=== PATIENT | female | born 1960 | race African-American/Black ===

== ENCOUNTER 2018-06-13 17:55 | Emergency (ER) | payer SELFPAY ==
--- NOTE | 2018-06-13 19:33 | ER Document Report ---
ED Medical Screen (RME) - General Chief Complaint: High Blood Sugar Stated Complaint: BLOOD SUGAR ISSUES Time Seen by Provider: 06/13/18 19:28 Mode of Arrival: Ambulatory Information source: Patient Notes: Patient states she received a call from her doctor that her blood sugar was elevated and that she should come to the hospital. Patient does admit to eating cookies despite a history of diabetes. Patient denies any recent illness, vomiting or abdominal tenderness. I have greeted and performed a rapid initial assessment of this patient. A comprehensive ED assessment and evaluation of the patient, analysis of test results and completion of the medical decision making process will be conducted by additional ED providers. TRAVEL OUTSIDE OF THE [place] IN LAST 30 DAYS: No Physical Exam - Vital signs Vitals: Temp Pulse Resp BP Pulse Ox 98.9 F 65 16 172/62 H 99 06/13/18 18:08 06/13/18 18:08 06/13/18 18:08 06/13/18 18:08 06/13/18 18:08 - General General appearance: Appears well, Alert In distress: None - Abdominal Inspection: Normal Tenderness: Nontender Course - Vital Signs Vital signs: Temp Pulse Resp BP Pulse Ox 98.9 F 65 16 172/62 H 99 06/13/18 18:08 06/13/18 18:08 06/13/18 18:08 06/13/18 18:08 06/13/18 18:08
[2018-06-13 20:55] LABS: ABSOLUTE EOSINOPHILS # (AUTO) 0.1 10^3/uL (0.0-0.6); ABSOLUTE LYMPHOCYTES (AUTO) 2.2 10^3/uL (0.5-4.7); ABSOLUTE MONOCYTES (AUTO) 0.5 10^3/uL (0.1-1.4); ABSOLUTE NEUT (AUTO) 2.8 10^3/uL (1.7-8.2); BASOPHILS % (AUTO) 0.5 % (0-2); HEMATOCRIT 39.1 % (36.0-47.0); HEMOGLOBIN 12.8 g/dL (12.0-15.5); MEAN CORPUSCULAR HEMOGLOBIN 27.8 pg (27.0-33.4); MEAN CORPUSCULAR HGB CONC 32.9 g/dL (32.0-36.0); MEAN CORPUSCULAR VOLUME 85 fl (80-97); MONOCYTES % (AUTO) 8.5 % (3-13); PLATELET COUNT 190 10^3/uL (150-450); RED BLOOD COUNT 4.62 10^6/uL (3.72-5.28); RED CELL DISTRIBUTION WIDTH 12.9 % (11.5-14.0); TOTAL CELLS COUNTED % (AUTO) 100 %; WHITE BLOOD COUNT 5.6 10^3/uL (4.0-10.5)
[2018-06-13 20:59] LABS: VENOUS BLOOD BASE EXCESS 2.2 mmol/L; VENOUS BLOOD PCO2 54.7 mmHg (35-63); VENOUS BLOOD PH 7.34 (7.30-7.42)
[2018-06-13 21:17] LABS: APPEARANCE,URINE SLIGHTLY-CLOUDY; BILIRUBIN,URINE NEGATIVE (NEGATIVE); COLOR,URINE YELLOW; GLUCOSE, URINE 50 mg/dL (NEGATIVE); KETONES,URINE TRACE mg/dL (NEGATIVE); LEUKOCYTE ESTERASE,URINE NEGATIVE (NEGATIVE); NITRITE,URINE NEGATIVE (NEGATIVE); PROTEIN,URINE NEGATIVE (NEGATIVE)
[2018-06-13 21:19] LABS: ALANINE AMINOTRANSFERASE 41 U/L (9-52); ALBUMIN 4.1 g/dL (3.5-5.0); ALKALINE PHOSPHATASE 64 U/L (38-126); ANION GAP 10 (5-19); ASPARTATE AMINO TRANSFERASE 28 U/L (14-36); BILIRUBIN,DIRECT 0.3 mg/dL (0.0-0.4); BILIRUBIN,TOTAL 0.4 mg/dL (0.2-1.3); BLOOD UREA NITROGEN 22 mg/dL (7-20); CALCIUM 9.8 mg/dL (8.4-10.2); CARBON DIOXIDE 28 mmol/L (22-30); CHLORIDE 101 mmol/L (98-107); GLUCOSE 241 mg/dL (75-110); POTASSIUM 4.4 mmol/L (3.6-5.0); SODIUM 139.2 mmol/L (137-145); TOTAL PROTEIN 7.1 g/dL (6.3-8.2)
[2018-06-13 21:57] VITALS: BP 179/80
--- NOTE | 2018-06-19 08:48 | ER Document Report ---
Entered by ROXANA WILSON SCRIBE 06/13/184 Acting as scribe for:JEFF JOSHI MD ED Blood Sugar Problem - General Chief Complaint: High Blood Sugar Stated Complaint: BLOOD SUGAR ISSUES Time Seen by Provider: 06/13/18 19:28 Mode of Arrival: Ambulatory Information source: Patient Notes: Patient is a 58 year old female who presents to the emergency department today with complaints of elevated blood sugars. Patient states that she takes metformin daily. Patient states that she is supposed to be taking 1000 mg twice daily however she only is able to take x1 1000mg pill as "taking x2 a day makes her sick to her stomach". Patient describes the sickness as abdominal pain. Patient states she has been taking the 1000 mg once a day for approximately 90 days. Patient admits that she does not check her sugars often. TRAVEL OUTSIDE OF THE [place] IN LAST 30 DAYS: No - Related Data Allergies/Adverse Reactions: No Known Allergies Allergy (Verified 06/13/18 19:34) Past Medical History - General Information source: Patient - Social History Smoking Status: Never Smoker Frequency of alcohol use: None Drug Abuse: None Family History: Reviewed & Not Pertinent Patient has suicidal ideation: No Patient has homicidal ideation: No - Past Medical History Cardiac Medical History: Reports: Hx Hypertension Endocrine Medical History: Reports: Hx Diabetes Mellitus Type 2 Past Surgical History: Reports: Hx Orthopedic Surgery - R knee Review of Systems - Review of Systems Constitutional: See HPI, Other - Elevated BGLs EENT: No symptoms reported Cardiovascular: No symptoms reported Respiratory: No symptoms reported Gastrointestinal: No symptoms reported Genitourinary: No symptoms reported Female Genitourinary: No symptoms reported Musculoskeletal: No symptoms reported Skin: No symptoms reported Hematologic/Lymphatic: No symptoms reported Neurological/Psychological: No symptoms reported -: Yes All other systems reviewed and negative Physical Exam - Vital signs Vitals: Temp Pulse Resp BP Pulse Ox 98.9 F 65 16 172/62 H 99 06/13/18 18:08 06/13/18 18:08 06/13/18 18:08 06/13/18 18:08 06/13/18 18:08 - Notes Notes: Physical Exam: General: Alert, appears well. HEENT: Normocephalic. Atraumatic. PERRL. Extraocular movements intact. Oropharynx clear. Neck: Supple. Non-tender. Respiratory: No respiratory distress. Clear and equal breath sounds bilaterally. Cardiovascular: Regular rate and rhythm. Abdominal: Normal Inspection. Non-tender. No distension. Normal Bowel Sounds. Back: Non-tender. No deformity or step off. Extremities: Moves all four extremities. Upper extremities: Normal inspection. Normal ROM. Lower extremities: Normal inspection. No edema. Normal ROM. Neurological: Normal cognition. AAOx4. Normal speech. Psychological: Normal affect. Normal Mood. Skin: Warm. Dry. Normal color. Course - Vital Signs Vital signs: Temp Pulse Resp BP Pulse Ox 97.3 F 71 16 179/80 H 100 06/13/18 21:55 06/13/18 21:55 06/13/18 21:55 06/13/18 21:55 06/13/18 21:55 - Laboratory Result Diagrams: 06/13/18 20:35 06/13/18 20:35 Laboratory results interpreted by me: 06/13/18 06/13/18 06/13/18 19:29 20:35 20:35 BUN 22 H Glucose 241 H POC Glucose 230 H Hemoglobin A1c % 11.0 H Urine Glucose (UA) Urine Ketones Urine Urobilinogen 06/13/18 21:03 BUN Glucose POC Glucose Hemoglobin A1c % Urine Glucose (UA) 50 H Urine Ketones TRACE H Urine Urobilinogen 2.0 H Discharge - Discharge Clinical Impression: Hyperglycemia due to type 2 diabetes mellitus Qualifiers: Diabetes mellitus bed bug exterminator insulin use: without bed bug exterminator use Qualified Code(s): E11.65 - Type 2 diabetes mellitus with hyperglycemia Condition: Stable Disposition: HOME, SELF-CARE Additional Instructions: Hyperglycemia (High Blood Sugar): You have an abnormally high blood sugar. Uncontrolled high blood sugar leads to early heart disease, strokes, nerve damage, eye damage, and kidney damage. Call the physician if there is faintness, excess sleepiness, or very rapid breathing. Follow-up with your doctor tomorrow to review your lab work and try to find a solution to the abdominal pain your metformin is causing. Be sure to drink plenty of water to help flush out the excess sugar in your system, and to stay hydrated. RETURN TO THE EMERGENCY ROOM IF ANY NEW OR WORSENING SYMPTOMS. Castilloibsaravanan Attestation: 06/13/18 21:49 I personally performed the services described in the documentation, reviewed and edited the documentation which was dictated to the scribe in my presence, and it accurately records my words and actions. I personally performed the services described in the documentation, reviewed and edited the documentation which was dictated to the scribe in my presence, and it accurately records my words and actions.
== END 2018-06-13 22:00 | disposition home or self-care (01) ==
LOC: ER 17:55
DX: E11.65 Type 2 diabetes mellitus with hyperglycemia (principal); T38.3X6A Underdosing of insulin and oral hypoglycemic [antidiabetic] drugs, initial encounter; Z91.128 Patient's intentional underdosing of medication regimen for other reason; Z91.14 Patient's other noncompliance with medication regimen; I10 Essential (primary) hypertension
CPT/HCPCS: 36415; 80053; 81001; 82803; 82962; 83036; 85025; 99284